=== PATIENT | male | born 1960 | race Caucasian/White ===

== ENCOUNTER 2023-06-06 22:12 | Emergency (ER) | payer BC, MEDICARE, SELFPAY ==
[2023-06-06 22:17] VITALS: BP 136/70
--- NOTE | 2023-06-07 | ED.SKININJ ---
HPI-Injury
General
Chief Complaint: Skin Surface Trauma
Source: patient and family (Spouse and daughter at bedside)
Exam Limitations: none
Time Seen by Provider: 06/06/23 23:45
Nursing documentation reviewed up to this point in time: agreed with
Travel History
Have you had any contact with someone who has COVID-19?: No
Do you have any symptoms of coronavirus? Fever > 100 degrees, chills, cough, shortness of breath, sore throat, loss of taste or smell, muscle aches, or headache?: No
History of Present Illness-Injury
Is this injury a work related problem?: No
Initial Injury comments:
This is a [id number] 62-year-old gentleman who complains of laceration lateral base of his left index digit that occurred while removing a cork from a wine bottle and the neck of the bottle shattered.
He admits to mild persistent oozing of blood from wound which is easily controlled with local pressure. He denies weakness nor numbness of his finger. Admits to mild local pain.
He has history of A-fib maintained on Eliquis.
He is unsure as to his last tetanus booster but believes this was well greater than 10 years ago.
Injury occurred at home.
Past History
Past History
ED Past Medical History: Arrthythmia (Atrial fibrillation)
ED Past Surgical History: Cardiac (A-fib ablation) and Orthopedic (Rotator cuff repair/leg fracture repair)
Social History
Tobacco: Non-smoker
Personal:
Living: with family
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
Family History
Family History: Other (Noncontributory)
Skin Exam
Laceration
Left Lateral Proximal Second Finger:
Orientation: C shaped (Horizontal flattened C shape)
Type of Laceration: simple
Any active bleeding?: low grade venous oozing
Distal skin color and temperature: normal-warm & good color
Normal distal neurovascular exam: Yes
Range of motion: full
Phy Exam
Physical Exam
Physical Exam:
PHYSICAL EXAMINATION:
General: 62-year-old gentleman appears his stated age, bright and alert, pleasant, appears in no acute distress. and daughter are accompanying.
Neuro: alert and oriented. no focal neurological deficits.
Psychiatric: well kept. interactive and cooperative
Musculoskeletal: [Left hand initially wrapped in Gregory gauze that was dry and intact. Gauze dressing removed to reveal a 2 cm horizontal minimally C-shaped laceration at the lateral base of the left index digit. This is a
full thickness laceration but no evidence of tendon involvement. No palpable nor visualized foreign body. Distal sensation, strength and neurovascularly intact. There is mild local tenderness to palpation. There is no tenderness to the hand nor
wrist.]
Course
Orders/Labs/Results
Orders:
Orders
06/06/23 23:59
Tetanus/Diphth/Acelpertussis [Adacel] 0.5 ml IM .ONCE ONE
06/07/23 00:05
CR Finger(s)/thumb Min 2 Vw Lt Urgent
Reason For Exam: L index-laceration glass , prox radial aspect
06/07/23 00:51
Cephalexin Monohydrate [Keflex] 500 mg PO NOW STA
Vital Signs
Initial and Last Documented VS:
Initial Vital Signs
Temp Pulse Resp BP Pulse Ox
97.8 F 88 18 136/70 98
06/06/23 22:17 06/06/23 22:17 06/06/23 22:17 06/06/23 22:17 06/06/23 22:17
Last Documented Vital Signs
Temp Pulse Resp BP Pulse Ox
97.8 F 88 18 136/70 98
06/06/23 22:17 06/06/23 22:17 06/06/23 22:17 06/06/23 22:17 06/06/23 22:17
Procedures
Laceration Closure
Left Lateral Proximal Second Finger:
Status of Wound: clean
Size of Wound in cm: 2
Description of Wound Edges: sharp
Preparation: cleaned with saline and cleaned with Betadine
Anesthesia: 1% Lidocaine with epi and added Na Bicarb to local
Revision/Debridement: routine- no revision and irrigate-direct pressure
Wound exploration: explored to base- no FB and no tendon involvement
Type of Closure: single layer closure
Skin Closure Material: 4-0 prolene
Number of sutures: 5
MDM/Problems Addressed
Differential Diagnosis Includes:
Left proximal index digit laceration due to broken glass.
Although on initial exam no palpable nor visualized glass foreign body will check x-ray to assess for potential retained foreign body.
There is mild venous oozing from laceration that is near resolved after wound locally anesthetized with 1% lidocaine with epinephrine.
Will update Tdap.
Will check x-ray to assess for glass foreign body.
Will plan for suture repair.
*Radiology
Radiology exam reviewed: preliminary read by ED provider (Left index digit x-ray shows no evidence of foreign body, no fracture)
*Pulse Oximetry
Patient hypoxic: no
*Critical Care Note
Total Time (30-74mins, 75-104mins- exclusive of procedures): Not Applicable
ED Attending Note
-
Portions of this chart may have been created with voice recognition software.� Occasional wrong word or��sound alike� substitutions may have occurred due to the inherent limitations of voice recognition software.
Discharge Plan
Departure
Patient Disposition: Home (Routine Discharge)
Date of Disposition: 06/07/23
Time of Disposition: 00:53
Patient with high blood pressure during this ER visit?: No
Condition: Good
Discharge Problem:
left index digit laceration
Instructions: Laceration Repair With Stitches (DC)
Prescriptions:
New
cephalexin 500 mg capsule
500 mg PO TID Qty: 21 0RF
Referrals:
London Chen MD [Family Provider] - Follow up in 10 days
Stand Alone Forms: Return to Work
Activity Restrictions/Additional Instructions:
Keep wound clean and dry.
Follow-up with primary care physician in 7 to 10 days for suture removal.
Interventions
Interventions:
*Risk Screen - Suicide Last Done: 06/06/23 22:17
*Neglect/Abuse Screening Last Done: 06/06/23 22:17
ED- Fall Risk Assessment Last Done: 06/06/23 23:17
ED-Skin Assessment Last Done: 06/06/23 23:17
Discharge Date and Time
Print Language: GERMAN
[2023-06-07] MEDS: ADACEL 0.5 ML IM (00:24)
[2023-06-07] MEDS: KEFLEX 500 MG PO (01:07)
[2023-06-07 01:09] VITALS: BP 128/80
== END 2023-06-07 01:11 | disposition home or self-care (01) ==
LOC: EMR 22:12
PROVIDERS: EMERGENCY PHYSICIAN Emergency Medicine; FAMILY PHYSICIAN Family Medicine
DX: S61.211A Laceration without foreign body of left index finger without damage to nail, initial encounter (principal); W25.XXXA Contact with sharp glass, initial encounter; Z23 Encounter for immunization; I48.91 Unspecified atrial fibrillation; Z79.01 Long term (current) use of anticoagulants
CPT/HCPCS: 99283; 12001; 90471; 73140; 90715